=== PATIENT | male | born 1940 ===

== ENCOUNTER 2017-04-30 14:46 | Emergency (ER) | payer MEDICARE, OTHER ==
[~2017-04-30] VITALS: Ht 172.7 cm; Wt 100.7 kg
[2017-04-30 15:00] VITALS: TEMP 36.3; Ht 172.7 cm; Wt 100.7 kg
--- NOTE | 2017-04-30 15:13 | EMERGENCY ROOM VISIT NOTE ---
History Report prepared by Rene: Hector Lee Under the Supervision of: Dr. Juan M Barfield M.D. First contact with patient: 14:59 Chief Complaint: HEAD PAIN Stated Complaint: FELL AND HIT HEAD REALLY HARD History of Present Illness The patient is a 77 year old male who presents to the Emergency Room with complaints of a head strike prior to arrival. The patient was walking up the stairs to his attic, slipped, fell, and hit the back of his head which is now tender to palpation. He denies loss of consciousness and back pain. He states tendenress to palpation. He denies Coumadin and blood thinner use. 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 Review of Systems See HPI for pertinent positives & negatives. A total of 6 systems reviewed and were otherwise negative. Social History Smoking Status: Never Smoker Housing Status: lives alone Current/Historical Medications Scheduled Clonazepam (Klonopin), 0.5 MG PO UD Enalapril (Vasotec), 10 MG PO DAILY Pravastatin (Pravachol ), Unknown Dose PO DAILY Spironolactone (Aldactone), Unknown Dose PO DAILY Allergies Coded Allergies: No Known Allergies (Unverified , 04/30/17) Physical Exam Vital Signs Date Time Temp Pulse Resp B/P (MAP) Pulse Ox O2 Delivery O2 Flow Rate FiO2 04/30/17 16:59 78 18 127/87 96 Room Air 04/30/17 15:00 36.3 77 18 148/93 97 Room Air Physical Exam GENERAL: Patient is well appearing and in no acute distress. HEENT: Mucous membranes moist, no nasal congestion, no scleral icterus. NECK: Posterior upper neck bruising and tenderness over the left paraspinal muscles as well as posterior scalp. No stridor, no adenopathy, no meningismus, trachea is midline. LUNGS: No dyspnea. Clear to auscultation and equal bilaterally. No wheeze, no rhonchi. HEART: Regular rate and rhythm. No murmurs, rubs, gallops appreciated. ABDOMEN: Soft, nontender, bowel sounds positive, no masses appreciated, no peritonitis. BACK: No midline tenderness, no CVA tenderness EXTREMITIES: Normal motion all extremities, no cyanosis, no edema. NEUROLOGIC: Alert and oriented, no acute motor or sensory deficits, no focal weakness, cranial nerves grossly intact. SKIN: No rash, no jaundice, no diaphoresis. Medical Decision & Procedures ER Provider Diagnostic Interpretation: Radiology results and stated below per my review and radiologist interpretation: CT OF THE HEAD WITHOUT CONTRAST CLINICAL HISTORY: posterior head/upper neck injury COMPARISON STUDY: No previous studies for comparison. TECHNIQUE: Helical axial images of the head were obtained without IV contrast. Automated exposure control was utilized for the study. A dose lowering technique was utilized adhering to the principles of ALARA. FINDINGS: No acute intracranial hemorrhage, midline shift or mass effect is present. Ventricular system is normal for age. There is mild atrophy. The basilar cisterns are patent. There are no extra-axial collections. White matter hypodensity suggests small vessel disease. Small posterior scalp contusion is noted. There is no calvarial fracture. Visualized portions of the sinuses and the mastoid air cells are clear. IMPRESSION: 1. No acute intracranial findings. 2. Small posterior scalp contusion. No calvarial fracture. Electronically signed by: Cricket Montalvo M.D. 04/30/2017 4:15 PM Dictated Date/Time: 04/30/2017 4:[address] OF THE CERVICAL SPINE WITHOUT CONTRAST CLINICAL HISTORY: posterior head/neck injury in fall COMPARISON STUDY: No previous studies for comparison. TECHNIQUE: Helical axial images of the cervical spine were obtained without IV contrast. Sagittal and coronal reconstructions were viewed. A dose lowering technique was utilized adhering to the principles of ALARA. FINDINGS: Craniocervical junction is intact. No acute cervical spine fracture is present. There is slight anterolisthesis of C4 on C5 and mild retrolisthesis of C5 on C6. There is no prevertebral edema. There is moderate to severe multilevel degenerative disc disease and severe multilevel facet arthrosis. IMPRESSION: No acute cervical spine fracture or subluxation. Electronically signed by: Cricket Montalvo M.D. 04/30/2017 4:17 PM Dictated Date/Time: 04/30/2017 4:15 PM ED Course 1459: The patient was evaluated in room D3B. A complete history and physical exam was performed. 1645: I checked on the patient and he is doing well. Reevaluated the patient. Discussed results and discharge instructions: He verbalized understanding and agreement. The patient is ready for discharge. Medical Decision Differential: Fracture, subdural intracranial hemorrhage, sprain, contusion, amongst other pathologies entertained. 77 yr old pleasant male who fell back in mechanical fall striking posterior head /top of cervical spine. Small hematoma on exam. Awake, alert, oriented without neuro deficits. No evidence central cord syndrome. Breathing comfortably. CT head/neck negative. No need for trauma surg nor nrsg evaluation. Stable at this time and will monitor for signs of head injury at home. Head Trauma GCS Score: 15 Medication Reconcilliation Current Medication List: was personally reviewed by me Blood Pressure Screening Patient's blood pressure: Elevated blood pressure Blood pressure disposition: Elevated BP felt to be situational Impression Primary Impression: Head injury, closed Scribe Attestation The scribe's documentation has been prepared under my direction and personally reviewed by me in its entirety. I confirm that the note above accurately reflects all work, treatment, procedures, and medical decision making performed by me. Departure Information Dispostion Home / Self-Care Referrals John Nava D.O. (PCP) Patient Instructions [facility] Additional Instructions Rest, keep well hydrated and avoid further head injuries. Use Tylenol and Motrin as needed for headaches. Return for further evaluation if vomiting, increasing pain, difficulty walking speaking, seizure, or other concerning symptoms. Mild headache may continue for several days and if it does please discuss concussion with your primary provider.
[2017-04-30] MEDS ORDERED: SPIR25TA PO (15:56)
[2017-04-30] MEDS ORDERED: PRAV20TA PO (15:56)
[2017-04-30] MEDS ORDERED: ENAL10TA88 PO (15:56)
[2017-04-30] MEDS ORDERED: CLON0.5T3 PO (15:56)
--- NOTE | 2017-04-30 16:16 | DIAGNOSTIC IMAGING REPORT ---
CT OF THE HEAD WITHOUT CONTRAST CLINICAL HISTORY: posterior head/upper neck injury COMPARISON STUDY: No previous studies for comparison. TECHNIQUE: Helical axial images of the head were obtained without IV contrast. Automated exposure control was utilized for the study. A dose lowering technique was utilized adhering to the principles of ALARA. FINDINGS: No acute intracranial hemorrhage, midline shift or mass effect is present. Ventricular system is normal for age. There is mild atrophy. The basilar cisterns are patent. There are no extra-axial collections. White matter hypodensity suggests small vessel disease. Small posterior scalp contusion is noted. There is no calvarial fracture. Visualized portions of the sinuses and the mastoid air cells are clear. IMPRESSION: 1. No acute intracranial findings. 2. Small posterior scalp contusion. No calvarial fracture. Electronically signed by: Cricket Montalvo M.D. 04/30/2017 4:15 PM Dictated Date/Time: 04/30/2017 4:13 PM
--- NOTE | 2017-04-30 16:19 | DIAGNOSTIC IMAGING REPORT ---
CT OF THE CERVICAL SPINE WITHOUT CONTRAST CLINICAL HISTORY: posterior head/neck injury in fall COMPARISON STUDY: No previous studies for comparison. TECHNIQUE: Helical axial images of the cervical spine were obtained without IV contrast. Sagittal and coronal reconstructions were viewed. A dose lowering technique was utilized adhering to the principles of ALARA. FINDINGS: Craniocervical junction is intact. No acute cervical spine fracture is present. There is slight anterolisthesis of C4 on C5 and mild retrolisthesis of C5 on C6. There is no prevertebral edema. There is moderate to severe multilevel degenerative disc disease and severe multilevel facet arthrosis. IMPRESSION: No acute cervical spine fracture or subluxation. Electronically signed by: Cricket Montalvo M.D. 04/30/2017 4:17 PM Dictated Date/Time: 04/30/2017 4:15 PM
[2017-04-30 16:59] VITALS: BP 127/87; PULSE 78; O2SAT 96
== END 2017-04-30 16:59 | disposition home or self-care (01) ==
LOC: C.EDB 14:49 → C.EDD 16:59
DX: S09.90XA Unspecified injury of head, initial encounter (principal); W01.0XXA Fall on same level from slipping, tripping and stumbling without subsequent striking against object, initial encounter; Y93.01 Activity, walking, marching and hiking; Y92.008 Other place in unspecified non-institutional (private) residence as the place of occurrence of the external cause